=== PATIENT | male | born 1980 | race Caucasian/White ===

== ENCOUNTER 2025-03-02 20:23 | Inpatient (IN) | payer OTHER ==
[~2025-03-02] VITALS: Ht 185.4 cm; Wt 97.5 kg
--- NOTE | 2025-03-02 20:46 | NUR ---
PACIENTE ALERTA Y OIRENTADO X3 QUEIN REFIERE QUE VIENE POR UN ABCESO EN EL GLUTEO DERECHO. SE MONITOREANS/V Y SE UBICA PACIENTE.
[2025-03-02] MEDS ORDERED: KETOROLAC TROMETHAMINE 30 MG VIAL IV ONE (22:30)
[2025-03-02] MEDS ORDERED: 0.9 % SODIUM CHLORIDE 1,000 ML IV SCH (22:30)
[2025-03-02] MEDS ORDERED: VANCOMYCIN HCL 1,000 MG VIAL IV ONE (22:30)
[2025-03-02] MEDS ORDERED: DEXAMETHASONE SODIUM PHOSPHATE 4 MG/ML VIAL IV ONE (22:30)
[2025-03-02] MEDS ORDERED: CEFEPIME HCL 1,000 MG VIAL IV ONE (22:45)
[2025-03-02] MEDS ORDERED: KETOROLAC TROMETHAMINE 30 MG VIAL ONE (23:12)
[2025-03-02] MEDS ORDERED: DEXAMETHASONE SODIUM PHOSPHATE 4 MG/ML VIAL ONE (23:12)
[2025-03-02] MEDS ORDERED: VANCOMYCIN HCL 1,000 MG VIAL ONE (23:12)
[2025-03-02] MEDS ORDERED: CEFEPIME HCL 2,000 MG VIAL ONE (23:12)
[2025-03-02 23:38] LABS: BASO % 0.3 % (0.1-1.2); EOS # 0.09 (0.04-0.54); EOS % 0.8 % (0.7-7.0); LYMPH # 1.77 (1.18-3.74); LYMPH % 15.1 % (19.3-53.1); MEAN PLATELET VOLUME 8.90 fl (9.4-12.4); MONO # 1.10 (0.24-0.82); MONO % 9.4 % (4.7-12.5); NEUT # 8.69 (1.56-6.13); NEUT % 74.0 % (34.0-71.1); RED CELL DISTRIBUTION WIDTH 11.8 % (11.6-14.4)
[2025-03-02 23:41] LABS: ERYTHROCYTE SEDIMENTATION RATE 20 mm/hr (0-15)
--- NOTE | 2025-03-03 00:03 | NUR ---
RN DANG EDUCA A PACIENTE SOBRE TX MEDICO, KYLER REFIERE ENTENDER. SE EXTRAEN MUESTRAS DE LABORATORIO Y SE ADMINISTRAN MEDICAMENTOS ENRIQUE ORDEN MEDICA. PENDIENTE U/A. SE NOTIFICA CT PENDIENTE.
[2025-03-03 00:08] LABS: INR 1.08
[2025-03-03 00:12] LABS: ALT/SGPT 37.0 U/L (12-78); AST/SGOT 19.0 U/L (15-37); BILIRUBIN TOTAL 2.71 mg/dL (0.3-1.2); BUN CREA RATIO 18.0 (7.0-25.0); CREATININE SERUM 1.08 mg/dL (0.70-1.30); GFR 73.61; GLOBULINA 3.7 G/DL (2.4-3.5); GLUCOSE FASTING 106.0 mg/dL (65-100); OSMOLALITY SERUM 282.0 MOSM/KG (275-295)
--- NOTE | 2025-03-03 00:18 | NUR ---
SE ORIENTA A PACIENTE SOBRE TRATAMIENTO MEDICO, REFIERE ENTENDER. SE ADMINISTRAN MEDICAMENTOS ENRIQUE ORDEN MEDICA. PENDIENTE RESULTADO DE CT. SE DEYANIRA EN CAMA CON BARANDAS ELEVADAS POR SEGURIDAD Y SE MANTIENE EN OBSERVACION POR CAMBIOS EN CONDICION MEDICA.
[2025-03-03 01:01] LABS: URINE APPEARANCE Clear; URINE BILIRRUBIN Negative (NEGATIVE); URINE BLOOD Negative; URINE COLOR Dark Yellow; URINE GLUCOSE Negative (NEGATIVE); URINE KETONE Negative (NEGATIVE); URINE LEUKOCYTE Negative; URINE NITRATE Negative; URINE PROTEIN Trace (NEGATIVE); URINE UROBILINOGEN 1.0 E.U./dl
[2025-03-03 01:05] LABS: URINE EPITHELIAL CELLS 2.9 uL (0.0-38.8); URINE RBC 31.3 uL (0.0-20.8); URINE WBC 4.7 uL (0.0-23.2)
[2025-03-03 01:12] LABS: URINE BACTERIA 3.5 uL (0.0-1933); URINE CAST 0.00 uL (0.0-1.40)
[2025-03-03] MEDS ORDERED: MORPHINE SULFATE 4 MG/ML CARTRIDGE IV ONE (01:30)
--- NOTE | 2025-03-03 08:42 | NUR ---
SE OBSERVA PTE MASCULINO DE KATIE CON BARANDAS ELEVADA , SE LE SUMIT S/V Y SE Y SE MANTIENE BAJO OBSERVACIONY CONSULTADO CON EL FARIHA FITZGERALD MED INTERNA.
[2025-03-03] MEDS ORDERED: PIPERACILLIN/TAZOBACTAM SODIUM 3.375 GM in 0.9 % SODIUM CHLORIDE 100 ML IV SCH (14:11)
[2025-03-03] MEDS ORDERED: 0.9 % SODIUM CHLORIDE 1,000 ML IV SCH (14:15)
[2025-03-03] MEDS ORDERED: ACETAMINOPHEN 325 MG TABLET PO PRN (14:15)
[2025-03-03] MEDS ORDERED: MORPHINE SULFATE 2 MG/ML SYRINGE IV PRN (14:15)
[2025-03-03] MEDS ORDERED: PIPERACILLIN/TAZOBACTAM SODIUM 3.375 GM VIAL IV ONE ×2 (14:26→18:37)
[2025-03-03] MEDS ORDERED: POVIDONE-IODINE 118 ML BOTT TOP ONE (16:32)
[2025-03-03] MEDS ORDERED: HYDROGEN PEROXIDE 473 ML BOTTLE TOP ONE (16:32)
[2025-03-03] MEDS ORDERED: KETOROLAC TROMETHAMINE 30 MG VIAL IV PRN (18:00)
[2025-03-03] MEDS ORDERED: ONDANSETRON HCL 2 MG/ML VIAL IV PRN (18:00)
[2025-03-03] MEDS ORDERED: KETOROLAC TROMETHAMINE 30 MG VIAL ONE (19:49)
[2025-03-04 01:50] VITALS: BP 101/60; O2SAT 96
[2025-03-04 08:09] LABS: BASO % 0.2 % (0.1-1.2); EOS # 0.06 (0.04-0.54); EOS % 0.7 % (0.7-7.0); LYMPH # 1.63 (1.18-3.74); LYMPH % 17.8 % (19.3-53.1); MEAN PLATELET VOLUME 9.40 fl (9.4-12.4); MONO # 0.74 (0.24-0.82); MONO % 8.1 % (4.7-12.5); NEUT # 6.68 (1.56-6.13); NEUT % 72.7 % (34.0-71.1); RED CELL DISTRIBUTION WIDTH 11.8 % (11.6-14.4)
[2025-03-04 08:27] LABS: BUN CREA RATIO 24.0 (7.0-25.0); CREATININE SERUM 1.04 mg/dL (0.70-1.30); GFR 76.88; GLUCOSE FASTING 137.0 mg/dL (65-100); OSMOLALITY SERUM 292.0 MOSM/KG (275-295)
[2025-03-04 09:13] VITALS: BP 106/61; BP 110/70; O2SAT 96; O2SAT 97
[2025-03-04] MEDS ORDERED: DOCUSATE SODIUM 100MG CAP PO SCH (17:00)
[2025-03-04] MEDS ORDERED: PIPERACILLIN/TAZOBACTAM SODIUM 3.375 GM VIAL IV ONE (18:00)
[2025-03-04 21:45] VITALS: BP 121/77
[2025-03-05 02:16] VITALS: BP 103/66; O2SAT 95
[2025-03-05 07:54] LABS: BASO % 0.7 % (0.1-1.2); EOS # 0.19 (0.04-0.54); EOS % 2.6 % (0.7-7.0); LYMPH # 2.84 (1.18-3.74); LYMPH % 39.1 % (19.3-53.1); MEAN PLATELET VOLUME 9.30 fl (9.4-12.4); MONO # 0.64 (0.24-0.82); MONO % 8.8 % (4.7-12.5); NEUT # 3.48 (1.56-6.13); NEUT % 48.0 % (34.0-71.1); RED CELL DISTRIBUTION WIDTH 11.8 % (11.6-14.4)
[2025-03-05 10:20] VITALS: BP 115/74; O2SAT 95
[2025-03-05] MEDS ORDERED: MEROPENEM 500 MG/VIAL VIAL IV SCH (12:00)
[2025-03-06 01:34] VITALS: BP 111/71; O2SAT 98
[2025-03-06 08:28] VITALS: BP 117/74; O2SAT 98
[2025-03-06 17:56] VITALS: BP 102/67; O2SAT 97
[2025-03-07 02:45] VITALS: BP 117/76; O2SAT 95
[2025-03-07 08:42] VITALS: BP 113/76; O2SAT 97
[2025-03-07 18:29] VITALS: BP 120/76; O2SAT 96
[2025-03-08 02:46] VITALS: BP 110/71; O2SAT 95
[2025-03-08 10:08] VITALS: BP 104/68; O2SAT 98
== END 2025-03-08 12:55 | disposition home or self-care (01) | DRG 349 ==
LOC: ER 20:24 → SEC-K 03-03 14:03 → O/R 03-03 14:03 → MEDI 03-03 14:03 → O/R 03-03 15:14 → MEDI 03-03 18:05 → MEDJ 03-05 17:33
PROVIDERS: General Practice; Surgery; ADMIT Internal Medicine; ATTEND Internal Medicine
PROC: BW2GYZZ Computerized Tomography (CT Scan) of Pelvic Region using Other Contrast (ICD-10-PCS; 2025-03-02)
PROC: BW2GZZZ Computerized Tomography (CT Scan) of Pelvic Region (ICD-10-PCS; 2025-03-02)
PROC: 0JBB0ZZ Excision of Perineum Subcutaneous Tissue and Fascia, Open Approach (ICD-10-PCS; 2025-03-03)
PROC: 0J9B0ZZ Drainage of Perineum Subcutaneous Tissue and Fascia, Open Approach (ICD-10-PCS; 2025-03-03)
PROC: 2W23X4Z Dressing of Abdominal Wall using Bandage (ICD-10-PCS; 2025-03-03)
PROC: 0D9Q0ZZ Drainage of Anus, Open Approach (ICD-10-PCS; principal; 2025-03-03 17:30)
PROC: 8E0ZXY6 Isolation (ICD-10-PCS; 2025-03-05)
DX: K61.39 Other ischiorectal abscess (principal); K61.0 Anal abscess; D72.829 Elevated white blood cell count, unspecified; B96.20 Unspecified Escherichia coli [E. coli] as the cause of diseases classified elsewhere; B96.89 Other specified bacterial agents as the cause of diseases classified elsewhere; B96.1 Klebsiella pneumoniae [K. pneumoniae] as the cause of diseases classified elsewhere

== ENCOUNTER 2025-03-11 09:07 | Inpatient (IN) | payer OTHER ==
[~2025-03-11] VITALS: Ht 185.4 cm; Wt 95.3 kg
[2025-03-11] MEDS ORDERED: RINGERS SOLUTION,LACTATED 1,000 ML IV STA (09:57)
[2025-03-11] MEDS ORDERED: MEROPENEM 500 MG/VIAL VIAL IV STA (09:59)
[2025-03-11] MEDS ORDERED: MORPHINE SULFATE 2 MG/ML SYRINGE IV STA (10:00)
[2025-03-11] MEDS ORDERED: KETOROLAC TROMETHAMINE 15 MG VIAL IV STA (10:02)
[2025-03-11 10:55] LABS: BASO % 0.2 % (0.1-1.2); EOS # 0.01 (0.04-0.54); EOS % 0.1 % (0.7-7.0); LYMPH # 0.42 (1.18-3.74); LYMPH % 2.6 % (19.3-53.1); MEAN PLATELET VOLUME 9.20 fl (9.4-12.4); MONO # 0.79 (0.24-0.82); MONO % 4.9 % (4.7-12.5); NEUT # 14.77 (1.56-6.13); NEUT % 91.5 % (34.0-71.1); RED CELL DISTRIBUTION WIDTH 11.7 % (11.6-14.4)
[2025-03-11 11:23] LABS: URINE APPEARANCE Clear; URINE BILIRRUBIN Negative (NEGATIVE); URINE BLOOD Negative; URINE COLOR Yellow; URINE GLUCOSE Negative (NEGATIVE); URINE KETONE Negative (NEGATIVE); URINE LEUKOCYTE Negative; URINE NITRATE Negative; URINE PROTEIN Negative (NEGATIVE); URINE UROBILINOGEN 0.2 E.U./dl
[2025-03-11 11:25] LABS: ALT/SGPT 26.0 U/L (12-78); AST/SGOT 17.0 U/L (15-37); BILIRUBIN TOTAL 1.31 mg/dL (0.3-1.2); BUN CREA RATIO 17.0 (7.0-25.0); CREATININE SERUM 1.15 mg/dL (0.70-1.30); GFR 68.46; GLOBULINA 3.2 G/DL (2.4-3.5); GLUCOSE FASTING 109.0 mg/dL (65-100); OSMOLALITY SERUM 280.0 MOSM/KG (275-295)
[2025-03-11 11:26] LABS: URINE RBC 11.4 uL (0.0-20.8); URINE WBC 4.9 uL (0.0-23.2)
[2025-03-11 11:38] LABS: INR 1.02
[2025-03-11 12:02] LABS: URINE BACTERIA 3.5 uL (0.0-1933); URINE CAST 0.14 uL (0.0-1.40); URINE EPITHELIAL CELLS 1.3 uL (0.0-38.8)
[2025-03-11] MEDS ORDERED: ACETAMINOPHEN 325 MG TABLET PO STA (13:48)
[2025-03-11] MEDS ORDERED: KETOROLAC TROMETHAMINE 30 MG VIAL IV PRN (16:45)
[2025-03-11] MEDS ORDERED: 0.9 % SODIUM CHLORIDE 1,000 ML IV SCH (16:45)
[2025-03-11] MEDS ORDERED: ACETAMINOPHEN 325 MG TABLET PO PRN (16:45)
[2025-03-11] MEDS ORDERED: MEROPENEM 500 MG in 0.9 % SODIUM CHLORIDE 50 ML IV ONE (17:00)
[2025-03-11 17:33] VITALS: BP 101/66
[2025-03-11] MEDS ORDERED: MEROPENEM 500 MG/VIAL VIAL IV SCH (18:00)
[2025-03-11 18:41] VITALS: BP 91/53; O2SAT 95
[2025-03-12 00:35] VITALS: BP 100/64; O2SAT 95
[2025-03-12 08:00] VITALS: BP 107/69; O2SAT 96
[2025-03-12 08:09] LABS: BASO % 0.2 % (0.1-1.2); EOS # 0.01 (0.04-0.54); EOS % 0.1 % (0.7-7.0); LYMPH # 0.80 (1.18-3.74); LYMPH % 6.6 % (19.3-53.1); MEAN PLATELET VOLUME 9.80 fl (9.4-12.4); MONO # 0.60 (0.24-0.82); MONO % 4.9 % (4.7-12.5); NEUT # 10.68 (1.56-6.13); NEUT % 88.0 % (34.0-71.1); RED CELL DISTRIBUTION WIDTH 12.2 % (11.6-14.4)
[2025-03-12 08:43] LABS: ERYTHROCYTE SEDIMENTATION RATE 11 mm/hr (0-15)
[2025-03-12] MEDS ORDERED: ACETAMINOPHEN 500 MG GEL..CAP PO PRN (13:45)
== END 2025-03-12 22:25 | disposition home or self-care (01) | DRG 394 ==
LOC: ER 09:07 → SURH 16:59
PROVIDERS: General Practice; ADMIT Internal Medicine; ATTEND Internal Medicine
PROC: BW2GYZZ Computerized Tomography (CT Scan) of Pelvic Region using Other Contrast (ICD-10-PCS; principal; 2025-03-11)
PROC: 8E0ZXY6 Isolation (ICD-10-PCS; 2025-03-11)
DX: K61.0 Anal abscess (principal); R65.10 Systemic inflammatory response syndrome (SIRS) of non-infectious origin without acute organ dysfunction; D72.829 Elevated white blood cell count, unspecified; R50.9 Fever, unspecified

== ENCOUNTER 2025-04-15 09:50 | Inpatient (IN) | payer OTHER ==
[~2025-04-15] VITALS: Ht 185.4 cm; Wt 90.7 kg
[2025-04-15] MEDS ORDERED: PROBIOTIC1 EAC4 (10:27)
--- NOTE | 2025-04-15 10:34 | NUR ---
SE RECIBE PACIENTE ALERTA Y ORIENTADO. REFIERE DIARREA, ESCALOFRIOS Y DOILOR ABDOMINAL DESDE KAYLA EN LA TARDE. SE MIDEN SIGNOS VITALES Y SE UBICA PARA EVALUACION MEDICA.
[2025-04-15] MEDS ORDERED: ONDANSETRON HCL 2 MG/ML VIAL IV ONE (11:00)
[2025-04-15] MEDS ORDERED: CIPROFLOXACIN IN 5 % DEXTROSE 400 MG/200 ML PIGGYBAG IV ONE (11:00)
[2025-04-15] MEDS ORDERED: 0.9 % SODIUM CHLORIDE 1,000 ML IV SCH (11:00)
[2025-04-15] MEDS ORDERED: LACTOBACILLUS ACIDOPHILUS 1 CAP CAP PO ONE (11:00)
[2025-04-15] MEDS ORDERED: FAMOTIDINE/PF 20 MG/2 ML VIAL IV ONE (11:00)
[2025-04-15] MEDS ORDERED: 0.9 % SODIUM CHLORIDE 1,000 ML IV ONE (11:00)
[2025-04-15] MEDS ORDERED: METRONIDAZOLE/SODIUM CHLORIDE 500 MG/100 ML PIGGYBACK IV ONE (11:00)
[2025-04-15 11:37] LABS: BASO % 0.3 % (0.1-1.2); EOS # 0.00 (0.04-0.54); EOS % 0.0 % (0.7-7.0); LYMPH # 0.61 (1.18-3.74); LYMPH % 9.9 % (19.3-53.1); MEAN PLATELET VOLUME 9.60 fl (9.4-12.4); MONO # 0.52 (0.24-0.82); MONO % 8.4 % (4.7-12.5); NEUT # 5.03 (1.56-6.13); NEUT % 81.2 % (34.0-71.1); RED CELL DISTRIBUTION WIDTH 13.2 % (11.6-14.4)
--- NOTE | 2025-04-15 11:38 | NUR ---
SE REALIZA LAB Y SE ADMINISTRA TX PEPCID Y ZOFRAN A PTE QUIEN REFIERE ENTENDER Y ACEPTAR. PTE REHUSA CIPRO Y FLAGYL. SE NOTIFICA A KAMARA CT PENDIENTE Y REFIERE ENTENDER
[2025-04-15 11:41] LABS: ERYTHROCYTE SEDIMENTATION RATE 4 mm/hr (0-15)
[2025-04-15 12:14] LABS: INR 1.06
[2025-04-15 12:21] LABS: ALT/SGPT 71.0 U/L (12-78); AST/SGOT 30.0 U/L (15-37); BILIRUBIN TOTAL 3.25 mg/dL (0.3-1.2); BUN CREA RATIO 16.0 (7.0-25.0); CREATININE SERUM 1.15 mg/dL (0.70-1.30); GFR 68.46; GLOBULINA 3.6 G/DL (2.4-3.5); GLUCOSE FASTING 104.0 mg/dL (65-100); OSMOLALITY SERUM 280.0 MOSM/KG (275-295)
[2025-04-15 12:34] LABS: COVID-19 AG NEGATIVE (NEGATIVE)
[2025-04-15 12:53] LABS: URINE APPEARANCE Clear; URINE BILIRRUBIN Negative (NEGATIVE); URINE BLOOD Negative; URINE COLOR Yellow; URINE GLUCOSE Negative (NEGATIVE); URINE KETONE Negative (NEGATIVE); URINE LEUKOCYTE Small; URINE NITRATE Negative; URINE PROTEIN Negative (NEGATIVE); URINE UROBILINOGEN 0.2 E.U./dl
[2025-04-15 12:56] LABS: URINE BACTERIA 13.1 uL (0.0-1933); URINE EPITHELIAL CELLS 5.8 uL (0.0-38.8); URINE RBC 11.7 uL (0.0-20.8); URINE WBC 9.2 uL (0.0-23.2)
[2025-04-15 13:09] LABS: URINE CAST 1.02 uL (0.0-1.40)
[2025-04-15] MEDS ORDERED: VANCOMYCIN HCL 125 MG/7.5 ML BLIST.PACK PO ONE (15:15)
[2025-04-15] MEDS ORDERED: VANCOMYCIN HCL 125 MG CAPSULE PO ONE (15:30)
[2025-04-15] MEDS ORDERED: CIPROFLOXACIN IN 5 % DEXTROSE 200 ML IV SCH (22:19)
[2025-04-15] MEDS ORDERED: MORPHINE SULFATE 2 MG/ML SYRINGE IV PRN (22:30)
[2025-04-16 01:18] VITALS: BP 130/70
[2025-04-16 02:52] VITALS: BP 99/62; O2SAT 95
[2025-04-16 08:01] LABS: BASO % 0.9 % (0.1-1.2); EOS # 0.15 (0.04-0.54); EOS % 3.4 % (0.7-7.0); LYMPH # 0.97 (1.18-3.74); LYMPH % 22.2 % (19.3-53.1); MEAN PLATELET VOLUME 10.10 fl (9.4-12.4); MONO # 0.62 (0.24-0.82); NEUT # 2.59 (1.56-6.13); NEUT % 59.3 % (34.0-71.1); RED CELL DISTRIBUTION WIDTH 13.3 % (11.6-14.4)
[2025-04-16 08:07] LABS: INR 1.07
[2025-04-16 08:09] LABS: MONO % 14.2 % (4.7-12.5)
[2025-04-16 08:22] LABS: BUN CREA RATIO 15.0 (7.0-25.0); CREATININE SERUM 0.92 mg/dL (0.70-1.30); GFR 88.57; GLUCOSE FASTING 118.0 mg/dL (65-100); OSMOLALITY SERUM 285.0 MOSM/KG (275-295)
[2025-04-16 09:18] VITALS: BP 107/67; O2SAT 95
[2025-04-16 18:05] VITALS: BP 127/77
[2025-04-17 02:11] VITALS: BP 102/65; O2SAT 96
[2025-04-17] MEDS ORDERED: VANCOMYCIN HCL 125 MG CAPSULE PO STA (08:15)
[2025-04-17 08:55] VITALS: BP 111/64; O2SAT 95
[2025-04-17] MEDS ORDERED: LACTOBACILLUS ACIDOPHILUS 1 CAP CAP PO SCH (17:00)
[2025-04-17] MEDS ORDERED: MEROPENEM 500 MG/VIAL VIAL IV SCH (18:00)
[2025-04-17] MEDS ORDERED: VANCOMYCIN HCL 125 MG CAPSULE PO SCH (18:00)
[2025-04-17 21:06] VITALS: BP 114/75
[2025-04-17 21:08] VITALS: BP 114/75
[2025-04-18 03:47] VITALS: BP 110/70; O2SAT 96
[2025-04-18] MEDS ORDERED: ORPHENADRINE CITRATE 30 MG/ML AMPUL IV PRN (07:45)
[2025-04-18 08:00] VITALS: BP 112/70; O2SAT 96
[2025-04-18] MEDS ORDERED: FIDAXOMICIN 200 MG TABLET PO SCH (17:00)
[2025-04-18 19:07] VITALS: BP 120/80; O2SAT 96
[2025-04-19 02:29] VITALS: BP 111/73; O2SAT 96
== END 2025-04-19 03:00 | disposition left against medical advice (07) | DRG 395 ==
LOC: ER 09:50 → MEDJ 23:30
PROVIDERS: ADMIT Internal Medicine; ATTEND Internal Medicine
PROC: BW21YZZ Computerized Tomography (CT Scan) of Abdomen and Pelvis using Other Contrast (ICD-10-PCS; principal; 2025-04-15)
DX: K61.0 Anal abscess (principal); D72.829 Elevated white blood cell count, unspecified; B96.20 Unspecified Escherichia coli [E. coli] as the cause of diseases classified elsewhere